=== PATIENT | female | born 1955 | race Caucasian/White ===

== ENCOUNTER → 2016-05-13 08:22 | Outpatient (CLI) | payer OTHER | END | disposition home or self-care (01) | LOC: D.NM 04-16 08:30 | DX: K21.9 Gastro-esophageal reflux disease without esophagitis (principal); K25.9 Gastric ulcer, unspecified as acute or chronic, without hemorrhage or perforation ==

== ENCOUNTER → 2018-04-23 09:07 | Outpatient (CLI) | payer BC | END | disposition home or self-care (01) | LOC: D.CT 09:07 | DX: R93.89 Abnormal findings on diagnostic imaging of other specified body structures (principal); K31.89 Other diseases of stomach and duodenum ==

== ENCOUNTER → 2018-10-22 07:48 | Outpatient (CLI) | payer BC | END | disposition home or self-care (01) | LOC: D.CT 07:48 | PROVIDERS: ATTEND Internal Medicine Gastroenterology | DX: K31.9 Disease of stomach and duodenum, unspecified (principal) ==

== ENCOUNTER 2018-11-06 07:54 | Outpatient (CLI) | payer BC ==
[2018-11-06 09:06] LABS: ALBUMIN 3.7 g/dL (3.4-5.0); BILIRUBIN - DIRECT 0.06 mg/dL (0.00-0.30); BILIRUBIN - INDIRECT 0.31 mg/dL (0.00-1.00); BILIRUBIN - TOTAL 0.37 mg/dL (0.2-1.3); PROTEIN - SERUM 7.4 g/dL (6.4-8.2)
== END 2018-11-06 07:55 | disposition home or self-care (01) ==
LOC: D.LAB 07:54 → EDSTATUS 17:10
PROVIDERS: ATTEND Internal Medicine Gastroenterology
DX: K76.89 Other specified diseases of liver (principal)